=== PATIENT | female | born 1940 | race Caucasian/White ===

== ENCOUNTER 2021-07-25 15:14 | Emergency (ER) | payer OTHER ==
[~2021-07-25] VITALS: Ht 152.4 cm; Wt 44.9 kg
[2021-07-25 16:46] LABS: Hematocrit 31.8 % (36.0-46.0); Mean Corpuscular Hemoglobin 29.9 pg (28.0-32.0); Mean Corpuscular Hgb Conc. 34.7 g/dL (32.0-36.0); Mean Corpuscular Volume 86.3 fL (80.0-100.0); Red Blood Cells 3.68 10^6/uL (4.0-5.20); Red Cell Distribution Width 16.7 % (11.8-14.3); White Blood Cell 12.6 10^3/uL (4.4-10.8)
[2021-07-25 16:50] LABS: Basophils % (manual) 0 (0.0-2.0); Blast Cells 0; INR 3.98 (0.9-1.15); Myelocytes % 0; Partial Thromboplastin Time 44.7 sec (23.6-33.0); Promyelocytes % 0; Reactive Lymphocytes 0
[2021-07-25 17:04] LABS: Total Protein 5.3 g/dL (6.4-8.2)
[2021-07-25 17:26] LABS: Band Neutrophils % (manual) 2
[2021-07-25 17:27] LABS: Eosinophils % (manual) 0 (0-7); Lymphocytes % (manual) 2 (10.0-50.0); Metamyelocytes % 1; Monocytes % (manual) 2 (0-12)
[2021-07-25 17:38] LABS: BUN/Creatinine Ratio 32.6; Calcium 8.2 mg/dL (8.5-10.1); Potassium 3.1 mmol/L (3.5-5.1)
[2021-07-25 17:39] LABS: Albumin 2.1 g/dL (3.4-5.0); Magnesium 2.4 mg/dL (1.6-2.6)
[2021-07-25 18:30] LABS: Urine Amorphous Crystal FEW /hpf (None Seen); Urine Bacteria FEW /hpf (None Seen); Urine Blood 2+ /uL (Negative); Urine Mucus FEW (None Seen); Urine Specific Gravity 1.015 (1.001-1.035); Urine WBC 175 /hpf (0 - 5); Urine WBC Clumps PRESENT /hpf (None Seen)
[2021-07-25] MEDS ORDERED: SODIUM CHLORIDE 0.9% 500 ML IV ONE (20:15)
[2021-07-25] MEDS ORDERED: fentaNYL CITRATE 100 MCG/2 ML VL IV ONE (20:45)
[2021-07-26] VITALS: BP 116/80
[2021-07-26] MEDS ORDERED: METOPROLOL TARTRATE 1MG/1ML-5ML VIAL IV ONE
== END 2021-07-26 00:26 | disposition short-term general hospital (02) ==
LOC: EDBD 15:14 → ER 15:14
DX: R17 Unspecified jaundice (principal); R74.8 Abnormal levels of other serum enzymes; N28.9 Disorder of kidney and ureter, unspecified; K92.2 Gastrointestinal hemorrhage, unspecified; E80.6 Other disorders of bilirubin metabolism; Z20.822 Contact with and (suspected) exposure to COVID-19
CPT/HCPCS: 36415; 71045; 74176; 80053; 81001; 83605; 83735; 83880; 84484; 85007; 85027; 85610; 85730; 87426; 93005; 96361; 96374; 99291; J3010; J7030